=== PATIENT | female | born 1980 | race Caucasian/White ===

== ENCOUNTER 2025-02-23 23:23 | Emergency (ER) | payer OTHER, BC ==
[2025-02-24] MEDS: Diphtheria,Pertussis(Acell),Tetanus Vaccine 0.5 ML Syringe IM ONE (00:35)
[2025-02-24 00:36] LABS: BASOPHILS ABSOLUTE AUTO 0.1 K/mm3 (0.0-0.2); BASOPHILS PERCENT AUTO 0.4 % (0.0-1.0); EOSINOPHILS ABSOLUTE AUTO 0.3 K/mm3 (0.0-0.4); EOSINOPHILS PERCENT AUTO 2.4 % (0.0-6.0); HEMATOCRIT 41.9 % (37.0-47.0); HEMOGLOBIN 13.9 gm/dl (12.0-16.0); IMMATURE GRAN ABSOLUTE AUTO 0.03 K/mm3 (0.00-0.05); IMMATURE GRAN PERCENT AUTO 0.2 % (0.0-0.4); LYMPHOCYTES ABSOLUTE AUTO 2.3 K/mm3 (1.0-4.8); LYMPHOCYTES PERCENT AUTO 16.9 % (24.0-44.0); MEAN CORPUSCULAR HGB CONC 33.2 g/dl (32.0-36.0); MEAN CORPUSCULAR VOLUME 90.5 fl (83.0-99.0); MEAN PLATELET VOLUME 9.3 fl (9.4-12.3); MONOCYTES ABSOLUTE AUTO 0.7 K/mm3 (0.0-0.8); MONOCYTES PERCENT AUTO 5.1 % (0.0-8.0); NEUTROPHILS ABSOLUTE AUTO 10.4 K/mm3 (1.8-7.7); PLATELET COUNT,PLT 283 K/mm3 (150-400); RED BLOOD CELL COUNT 4.63 M/mm3 (4.10-5.30); WHITE BLOOD CELL COUNT,WBC 13.87 K/mm3 (3.9-11.3)
[2025-02-24] MEDS: Lidocaine 1% 10 ML MDV ONE (00:53)
[2025-02-24 01:01] LABS: A/G RATIO 1.2 (1-2); ALBUMIN 3.9 g/dl (3.4-5.0); ANION GAP 15.8 (5-15); BILIRUBIN TOTAL 0.2 mg/dL (0.2-1.0); BUN/CREATININE RATIO 12.3 (14-18); CREATININE 1.3 mg/dL (0.55-1.02); EST CRCL DRUG DOSING (CG) 63.01 mL/min; ETHANOL BLOOD MEDICAL 0.27 gm% (0.00); POTASSIUM,K 3.8 mEq/L (3.5-5.1); PROTEIN TOTAL,TP 7.2 g/dl (6.4-8.2)
== END 2025-02-24 03:40 | disposition home or self-care (01) ==
LOC: JD.ED 23:23
DX: S91.011A Laceration without foreign body, right ankle, initial encounter (principal); I10 Essential (primary) hypertension; F10.90 Alcohol use, unspecified, uncomplicated; Y90.8 Blood alcohol level of 240 mg/100 ml or more; Z88.5 Allergy status to narcotic agent; Z23 Encounter for immunization; V49.40XA Driver injured in collision with unspecified motor vehicles in traffic accident, initial encounter; Y92.410 Unspecified street and highway as the place of occurrence of the external cause
CPT/HCPCS: 12002; 36415; 73060; 73090; 73610; 80053; 80143; 80179; 80307; 83735; 84703; 85025; 90471; 90715; 99284; J2003